=== PATIENT | female | born 1985 | race Caucasian/White ===

== ENCOUNTER 2022-08-30 12:54 | Outpatient (CLI) | payer BC ==
[2022-08-30] VITALS (18 sets, daily range): BP systolic 103–130; BP diastolic 67–82
== END 2022-08-30 23:59 | disposition home or self-care (01) ==
LOC: CARD DIAG 12:54
PROVIDERS: ATTEND Internal Medicine Interventional Cardiology
DX: R55 Syncope and collapse (principal)
CPT/HCPCS: 93660